=== PATIENT | male | born 1975 | race American Indian/Alaskan Native ===

== ENCOUNTER 2019-08-17 07:13 | Inpatient (IN) | payer SELFPAY ==
[2019-08-17 08:15] LABS: Basophils % (Auto) 0.2 % (0.0-1.8); Hematocrit 53.3 % (35.5-45.6); Hemoglobin 17.3 gm/dl (11.8-15.2); Lymphocytes # (Auto) 0.7 K/mm3 (1.2-5.4); Lymphocytes % (Auto) 7.1 % (13.4-35.0); Mean Corpuscular HGB Conc 33 % (32-34); Mean Corpuscular Volume 95 fl (84-94); Monocytes # (Auto) 0.3 K/mm3 (0.0-0.8); Monocytes % (Auto) 3.5 % (0.0-7.3); Platelet Count 285 K/mm3 (140-440); Red Blood Count 5.62 M/mm3 (3.65-5.03); Red Cell Distribution Width 13.5 % (13.2-15.2)
[2019-08-17] MEDS ORDERED: SODIUM CHLORIDE 0.9% 1000 ML 1,000 ML IV ONE (08:33)
[2019-08-17 08:38] LABS: Alanine Aminotransferase 16 units/L (7-56); Albumin 4.5 g/dL (3.9-5); BUN/Creatinine Ratio 15; Blood Urea Nitrogen 17 mg/dL (9-20); Calcium 9.4 mg/dL (8.4-10.2); Hemolysis Index 11
--- NOTE | 2019-08-17 08:41 | Emergency Department Report ---
HPI - General Chief Complaint: Hyperglycemia Time Seen by Provider: 08/17/19 08:32 - HPI HPI: Room 2 The patient is a 43-year-old male present with a chief complaint of nausea vomiting and arthralgia. Patient states his symptoms began yesterday with na usea vomiting and pain in his knees. Patient states this morning at 04: 00 he again developed nausea vomiting and pain in all of his joints. Patient denies diarrhea fever or cough. Patient states she has been compliant with his insulin 70/30 and metformin. ED Past Medical Hx - Past Medical History Previous Medical History?: Yes Hx Diabetes: Yes - Surgical History Past Surgical History?: No - Family History Family history: no significant - Social History Smoking Status: Never Smoker Substance Use Type: None (Denies illicit drug use) ED Review of Systems ROS: Stated complaint: ABD PAIN Other details as noted in HPI Constitutional: denies: fever Eyes: denies: eye pain ENT: denies: throat pain Respiratory: no symptoms reported. denies: cough Cardiovascular: denies: chest pain Gastrointestinal: nausea, vomiting Genitourinary: denies: dysuria Musculoskeletal: arthralgia Neurological: denies: headache Physical Exam - Physical Exam Vital Signs: Vital Signs 08/17/19 07:30 Temperature 97.9 F Pulse Rate 108 H Respiratory 16 Rate Blood Pressure 114/74 O2 Sat by Pulse 99 Oximetry Physical Exam: GENERAL: The patient is well-developed well-nourished male lying on stretcher n ot appearing to be in acute distress. [] HEENT: Normocephalic. Atraumatic. Extraocular motions are intact. NECK: Supple. Trachea midline CHEST/LUNGS: Clear to auscultation. There is no respiratory distress noted. HEART/CARDIOVASCULAR: Regular. There is no tachycardia. There is no gallop rub or murmur. ABDOMEN: Abdomen is soft, nontender. Patient has normal bowel sounds. There is no abdominal distention. SKIN: There is no rash. There is no edema. There is no diaphoresis. NEURO: The patient is awake, alert, and oriented. The patient is cooperative. The patient has normal speech MUSCULOSKELETAL: There is no evidence of acute injury. ED Course Vital Signs 08/17/19 07:30 Temperature 97.9 F Pulse Rate 108 H Respiratory 16 Rate Blood Pressure 114/74 O2 Sat by Pulse 99 Oximetry ED Medical Decision Making - Lab Data Result diagrams: 08/17/19 07:55 08/17/19 07:55 Laboratory Tests 08/17/19 08/17/19 08/17/19 07:55 07:55 07:55 WBC 9.7 RBC 5.62 H Hgb 17.3 H Hct 53.3 H MCV 95 H MCH 31 MCHC 33 RDW 13.5 Plt Count 285 Lymph % (Auto) 7.[address] [place] % (Auto) 3.5 Eos % (Auto) 0.0 Baso % (Auto) 0.2 Lymph # 0.[address] [place] # 0.3 Eos # 0.0 Baso # 0.0 Seg Neutrophils % 89.2 H Seg Neutrophils # 8.6 H VBG pH 7.012 L* Sodium 127 L Potassium 5.0 Chloride 90.5 L Carbon Dioxide 7 L* Anion Gap 35 BUN 17 Creatinine 1.1 Estimated GFR > 60 BUN/Creatinine Ratio 15 Glucose 466 H POC Glucose Calcium 9.4 Total Bilirubin 0.20 AST 10 ALT 16 Alkaline Phosphatase 109 Total Protein 7.2 Albumin 4.5 Albumin/Globulin Ratio 1.7 08/17/19 08:52 WBC RBC Hgb Hct MCV MCH MCHC RDW Plt Count Lymph % (Auto) [place] % (Auto) Eos % (Auto) Baso % (Auto) Lymph # [place] # Eos # Baso # Seg Neutrophils % Seg Neutrophils # VBG pH Sodium Potassium Chloride Carbon Dioxide Anion Gap BUN Creatinine Estimated GFR BUN/Creatinine Ratio Glucose POC Glucose 398 H Calcium Total Bilirubin AST ALT Alkaline Phosphatase Total Protein Albumin Albumin/Globulin Ratio - Differential Diagnosis DKA, gastritis, GERD Critical care attestation.: If time is entered above; I have spent that time in minutes in the direct care of this critically ill patient, excluding procedure time. ED Disposition Clinical Impression: DKA (diabetic ketoacidoses) Disposition: DC-09 OP ADMIT IP TO THIS HOSP Is pt being admited?: Yes Does the pt Need Aspirin: No Condition: Fair Instructions: Diabetic Ketoacidosis (ED) Time of Disposition: 09:22 (Hospitalist notified)
[2019-08-17] MEDS ORDERED: INSULIN REGULAR, HUMAN 100 UNITS in SODIUM CHLORIDE 0.9% 99 ML IV SCH ×2 (09:30→15:00)
[2019-08-17 09:47] LABS: BUN/Creatinine Ratio 16; Blood Urea Nitrogen 18 mg/dL (9-20); Calcium 9.4 mg/dL (8.4-10.2); Hemolysis Index 36
[2019-08-17 10:19] LABS: Bilirubin,Urine NEG (Negative); Blood,Urine SM (Negative); Color,Urine Yellow (Yellow); Mucus,Urine FEW /HPF; RBC,Urine < 1.0 /HPF (0.0-6.0); Urobilinogen,Urine < 2.0 mg/dL (<2.0); WBC,Urine < 1.0 /HPF (0.0-6.0)
[2019-08-17 14:01] LABS: BUN/Creatinine Ratio 17; Blood Urea Nitrogen 15 mg/dL (9-20); Calcium 8.4 mg/dL (8.4-10.2); Hemolysis Index 7
[2019-08-17] MEDS ORDERED: ONDANSETRON 4 MG/2 ML INJ IV PRN (14:14)
--- NOTE | 2019-08-17 14:14 | History and Physical Report ---
History of Present Illness Date of examination: 08/17/19 Date of admission: 08/17/19 09:19 Chief complaint: DKA History of present illness: The patient is a 43-year-old male present with a chief complaint of nausea vomiting and arthralgias that began approximately 4 AM this morning. Patient denies diarrhea fever or cough. Patient states she has been compliant with his insulin 70/30 20 units in the morning and 25 units at bedtime and metformin 1000 mg twice daily. Patient denies any chest pain or shortness of breath. No headache or visual disturbances. Patient denies hematemesis. Past History Past Medical History: diabetes Past Surgical History: No surgical history Social history: no significant social history Family history: no significant family history Medications and Allergies Allergies Allergy/AdvReac Type Severity Reaction Status Date / Time No Known Allergies Allergy Verified 08/17/19 07:30 Active Meds: Active Medications Insulin Human Regular 100 (units/ Sodium Chloride) 100 mls @ 5 mls/hr IV TITR NNEKA; Protocol Last Titration: 08/17/19 12:40 Dose: 8 units/hr, 8 mls/hr Documented by: Review of Systems All systems: negative Exam - Constitutional Vitals: Temp Pulse Resp BP Pulse Ox 97.9 F 120 H 16 114/78 97 08/17/19 07:30 08/17/19 13:09 08/17/19 13:09 08/17/19 13:09 08/17/19 13:09 General appearance: Present: no acute distress, well-nourished - EENT Eyes: Present: PERRL ENT: hearing intact, clear oral mucosa - Neck Neck: Present: supple, normal ROM - Respiratory Respiratory effort: normal Respiratory: bilateral: CTA - Cardiovascular Heart Sounds: Present: S1 & S2. Absent: rub, click - Extremities Extremities: pulses symmetrical, No edema Peripheral Pulses: within normal limits - Abdominal General gastrointestinal: Present: soft, non-tender, non-distended, normal bowel sounds Male genitourinary: Present: normal - Integumentary Integumentary: Present: clear, warm, dry - Musculoskeletal Musculoskeletal: gait normal, strength equal bilaterally - Psychiatric Psychiatric: appropriate mood/affect, intact judgment & insight - Neurologic Neurologic: CNII-XII intact, moves all extremities Results - Labs CBC & Chem 7: 08/17/19 07:55 08/17/19 13:08 Labs: Laboratory Last Values WBC 9.7 K/mm3 (4.5-11.0) 08/17/19 07:55 RBC 5.62 M/mm3 (3.65-5.03) H 08/17/19 07:55 Hgb 17.3 gm/dl (11.8-15.2) H 08/17/19 07:55 Hct 53.3 % (35.5-45.6) H 08/17/19 07:55 MCV 95 fl (84-94) H 08/17/19 07:55 MCH 31 pg (28-32) 08/17/19 07:55 MCHC 33 % (32-34) 08/17/19 07:55 RDW 13.5 % (13.2-15.2) 08/17/19 07:55 Plt Count 285 K/mm3 (140-440) 08/17/19 07:55 Lymph % (Auto) 7.1 % (13.4-35.0) L 08/17/19 07:55 [place] % (Auto) 3.5 % (0.0-7.3) 08/17/19 07:55 Eos % (Auto) 0.0 % (0.0-4.3) 08/17/19 07:55 Baso % (Auto) 0.2 % (0.0-1.8) 08/17/19 07:55 Lymph # 0.7 K/mm3 (1.2-5.4) L 08/17/19 07:55 [place] # 0.3 K/mm3 (0.0-0.8) 08/17/19 07:55 Eos # 0.0 K/mm3 (0.0-0.4) 08/17/19 07:55 Baso # 0.0 K/mm3 (0.0-0.1) 08/17/19 07:55 Seg Neutrophils % 89.2 % (40.0-70.0) H 08/17/19 07:55 Seg Neutrophils # 8.6 K/mm3 (1.8-7.7) H 08/17/19 07:55 VBG pH 7.012 (7.320-7.420) L* 08/17/19 07:55 Sodium 126 mmol/L (137-145) L 08/17/19 08:59 Potassium 5.3 mmol/L (3.6-5.0) H 08/17/19 08:59 Chloride 102.4 mmol/L (98-107) 08/17/19 13:08 Carbon Dioxide 7 mmol/L (22-30) L* 08/17/19 08:59 Anion Gap 34 mmol/L 08/17/19 08:59 BUN 15 mg/dL (9-20) 08/17/19 13:08 Creatinine 0.9 mg/dL (0.8-1.5) 08/17/19 13:08 Estimated GFR > 60 ml/min 08/17/19 13:08 BUN/Creatinine Ratio 17 % 08/17/19 13:08 Glucose 261 mg/dL (75-100) H 08/17/19 13:08 POC Glucose 240 (70-105) H 08/17/19 14:07 Calcium 8.4 mg/dL (8.4-10.2) 08/17/19 13:08 Phosphorus 4.40 mg/dL (2.5-4.5) 08/17/19 08:59 Magnesium 2.00 mg/dL (1.7-2.3) 08/17/19 08:59 Total Bilirubin 0.20 mg/dL (0.1-1.2) 08/17/19 07:55 AST 10 units/L (5-40) 08/17/19 07:55 ALT 16 units/L (7-56) 08/17/19 07:55 Alkaline Phosphatase 109 units/L (35-129) 08/17/19 07:55 Total Protein 7.2 g/dL (6.3-8.2) 08/17/19 07:55 Albumin 4.5 g/dL (3.9-5) 08/17/19 07:55 Albumin/Globulin Ratio 1.7 % 08/17/19 07:55 Urine Color Yellow (Yellow) 08/17/19 09:55 Urine Turbidity Clear (Clear) 08/17/19 09:55 Urine pH 5.0 (5.0-7.0) 08/17/19 09:55 Ur Specific [place] 1.021 (1.003-1.030) 08/17/19 09:55 Urine Protein 30 mg/dl mg/dL (Negative) 08/17/19 09:55 Urine Glucose (UA) >=500 mg/dL (Negative) 08/17/19 09:55 Urine Ketones 80 mg/dL (Negative) 08/17/19 09:55 Urine Blood Sm (Negative) 08/17/19 09:55 Urine Nitrite Neg (Negative) 08/17/19 09:55 Urine Bilirubin Neg (Negative) 08/17/19 09:55 Urine Urobilinogen < 2.0 mg/dL (<2.0) 08/17/19 09:55 Ur Leukocyte Esterase Neg (Negative) 08/17/19 09:55 Urine WBC (Auto) < 1.0 /HPF (0.0-6.0) 08/17/19 09:55 Urine RBC (Auto) < 1.0 /HPF (0.0-6.0) 08/17/19 09:55 Urine Mucus Few /HPF 08/17/19 09:55 Santos/IV: IV Catheter Type [Right INT / Saline Lock Antecubital] Assessment and Plan Assessment and plan: DKA. The patient will be placed on DKA protocol and transition to his home regimen when acidosis has resolved. Continue IV fluid hydration and IV insulin drip. Intractable nausea and vomiting. Continue antiemetics and IV fluid hydration. Etiology likely secondary to gastritis. Gastritis. PPI. The high probability of a clinically significant, sudden or life threatening deterioration of the [endocrine] system(s) required my full and direct attention , intervention and personal management. The aggregate critical care time was [34] minutes. This time is in addition to time spent performing reported procedures but includes the following: [x] Data Review and interpretation [x] Patient assessment and monitoring of vital signs [x] Documentation [x] Medication orders and management
[2019-08-17] MEDS ORDERED: ACETAMINOPHEN 325 MG TAB PO PRN (14:17)
[2019-08-17] MEDS ORDERED: D5W/0.45% NACL/KCL 20 MEQ 20 MEQ/1,000 ML BAG IV ONE (14:22)
[2019-08-17] MEDS ORDERED: D5W/0.45% NACL/KCL 20 MEQ 20 MEQ/1,000 ML BAG IV SCH (14:30)
[2019-08-17] MEDS ORDERED: ONDANSETRON 4 MG/2 ML INJ ONE (16:11)
[2019-08-17] MEDS ORDERED: ACETAMINOPHEN 325 MG TAB ONE (16:13)
[2019-08-17 17:04] LABS: BUN/Creatinine Ratio 17; Blood Urea Nitrogen 15 mg/dL (9-20); Calcium 8.7 mg/dL (8.4-10.2); Hemolysis Index 30
[2019-08-17] MEDS ORDERED: SODIUM BICARB 8.4% 50 MEQ/50 ML SYRINGE IV ONE ×2 (17:58→18:41)
[2019-08-17 19:19] LABS: BUN/Creatinine Ratio 19; Blood Urea Nitrogen 15 mg/dL (9-20); Calcium 8.5 mg/dL (8.4-10.2); Hemolysis Index 47
[2019-08-17] MEDS ORDERED: ENOXAPARIN 40 MG/0.4 ML INJ SUB-Q SCH (22:00)
[2019-08-17] MEDS ORDERED: ENOXAPARIN 40 MG/0.4 ML INJ SUB-Q ONE (22:30)
[2019-08-17 23:57] LABS: BUN/Creatinine Ratio 18; Blood Urea Nitrogen 14 mg/dL (9-20); Hemolysis Index 101
[2019-08-18 01:28] LABS: BUN/Creatinine Ratio 20; Blood Urea Nitrogen 14 mg/dL (9-20); Calcium 8.6 mg/dL (8.4-10.2); Hemolysis Index 34
[2019-08-18 06:29] VITALS: BP 97/55
[2019-08-18 07:04] LABS: BUN/Creatinine Ratio 23; Blood Urea Nitrogen 14 mg/dL (9-20); Calcium 8.4 mg/dL (8.4-10.2); Hemolysis Index 20
[2019-08-18] MEDS ORDERED: D5W/0.45% NACL/KCL 20 MEQ 20 MEQ/1,000 ML BAG IV ONE (09:19)
[2019-08-18 09:58] LABS: BUN/Creatinine Ratio 22; Blood Urea Nitrogen 13 mg/dL (9-20); Calcium 8.3 mg/dL (8.4-10.2); Hemolysis Index 10
--- NOTE | 2019-08-18 10:17 | Discharge Summary ---
Providers - Providers Date of Admission: 08/17/19 09:19 Date of discharge: 08/18/19 Attending physician: FLORES MCKEON 08/17/19 14:14 Consult to Dietitian/Nutrition [CONS] Routine Physician Instructions: Reason For Exam: DKA Reason for Consult: Nutrition Recommendations Reason for Consult: Diet education Primary care physician: CHIEF OPERATING ENGINEER Hospitalization Reason for admission: DKA Condition: Fair Hospital course: The patient is a 43-year-old male present with a chief complaint of nausea vomiting and arthralgias that began approximately 4 AM the morning [employer]. The patient was admitted with diagnosis of DKA and placed on DKA protocol. Patient received IV fluid hydration along with IV insulin drip. Patient's anion gap was near complete resolution and blood sugars had stabilized in the 140 range. Patient was going to be transition to medical floor and started back on his home insulin regimen. However, the nurse informed me that patient wanted to sign out AMA. Nurse was instructed to give risk of signing out. Dedicated discharge time 35 minutes. Disposition: DC-07 LEFT AGAINST MED ADVICE Time spent for discharge: 35 - Discharge Diagnoses (1) DKA (diabetic ketoacidoses) Status: Acute Core Measure Documentation - Palliative Care Palliative Care/ Comfort Measures: Not Applicable - Core Measures Any of the following diagnoses?: none Exam - Constitutional Vitals: Temp Pulse Resp BP Pulse Ox 98.1 F 77 11 L 97/55 97 08/17/19 20:46 08/18/19 06:16 08/18/19 06:16 08/18/19 06:16 08/18/19 06:16 General appearance: Present: no acute distress, well-nourished - EENT Eyes: Present: PERRL ENT: hearing intact, clear oral mucosa - Neck Neck: Present: supple, normal ROM - Respiratory Respiratory effort: normal Respiratory: bilateral: CTA - Cardiovascular Heart Sounds: Present: S1 & S2. Absent: rub, click - Extremities Extremities: pulses symmetrical, No edema Peripheral Pulses: within normal limits - Abdominal General gastrointestinal: Present: soft, non-tender, non-distended, normal bowel sounds Male genitourinary: Present: normal - Integumentary Integumentary: Present: clear, warm, dry - Musculoskeletal Musculoskeletal: gait normal, strength equal bilaterally - Psychiatric Psychiatric: appropriate mood/affect, intact judgment & insight - Neurologic Neurologic: CNII-XII intact, moves all extremities Plan
== END 2019-08-18 11:30 | disposition left against medical advice (07) | DRG 639 ==
LOC: ED 07:13 → 4A 09:19 → 3A 09:48 → CC1 10:35
PROVIDERS: ADMIT Hospitalist; ATTEND Hospitalist
DX: E11.10 Type 2 diabetes mellitus with ketoacidosis without coma (principal); K29.70 Gastritis, unspecified, without bleeding
CPT/HCPCS: 36415; 80048; 80053; 81001; 82805; 82962; 83735; 84100; 85025; 96365; 96366; 96367; 96372; 96375; G0378; J1650; J1815; J2405; J7030